=== PATIENT | female | born 1955 | race Caucasian/White ===

== ENCOUNTER 2021-11-13 08:03 | Emergency (ER) | payer MEDICARE, BC | END 2021-11-13 10:25 | disposition home or self-care (01) | LOC: LB.ED 08:03 | DX: J06.9 Acute upper respiratory infection, unspecified (principal); Z20.822 Contact with and (suspected) exposure to COVID-19; Z79.82 Long term (current) use of aspirin | CPT/HCPCS: 36415; 71045; 80048; 81001; 83605; 84484; 85025; 87804; 93005; 99284; U0002; 99282 ==

== ENCOUNTER 2021-11-14 06:55 | Observation (INO) | payer MEDICARE, BC ==
[2021-11-14] MEDS ORDERED: Acetaminophen 325 MG Tab PO PRN (09:13)
[2021-11-14] MEDS ORDERED: Sodium Chloride 0.9% 1,000 ML IV SCH (09:15)
[2021-11-14] MEDS ORDERED: Sodium Chloride 0.9% 500 ML IV SCH (09:15)
[2021-11-14] MEDS ORDERED: Pseudoephedrine 120 MG Tab.ER PO SCH (09:15)
[2021-11-14] MEDS ORDERED: Sodium Chloride 0.9% 10 ML Syringe FLUSH PRN (09:17)
[2021-11-14] MEDS ORDERED: Non-Formulary Medication 1 Each (Fluticasone Propionate [Flonase Allergy Relief] 9.9 ML Sp NASLF PRN (09:18)
[2021-11-14] MEDS ORDERED: Levothyroxine 25 MCG Tab PO ONE (09:20)
[2021-11-14] MEDS: guaiFENesin 600 MG Tab.ER PO SCH ×2 (09:47→19:22)
[2021-11-14] MEDS: Gabapentin 300 MG Cap PO SCH (09:47)
[2021-11-14] MEDS: cefTRIAXone 1 GM Vial IVPUSH SCH (09:48)
[2021-11-14] MEDS: Sodium Chloride 0.65% Nasal Spray 45 ML Bottle NAS SCH ×3 (09:55→21:15)
[2021-11-14] MEDS ORDERED: Fluticasone NASAL Spray 16 GM Bottle NASLF PRN (14:26)
[2021-11-14] MEDS: PSEUDOEPHEDRINE 120 MG PO SCH (19:24)
[2021-11-14] MEDS ORDERED: Gabapentin 600 MG Tab PO SCH (20:00)
[2021-11-15] MEDS: Sodium Chloride 0.65% Nasal Spray 45 ML Bottle NAS SCH ×2 (03:15→08:41)
[2021-11-15] MEDS ORDERED: Levothyroxine 100 MCG Tab PO SCH (07:00)
[2021-11-15] MEDS: guaiFENesin 600 MG Tab.ER PO SCH (07:49)
[2021-11-15] MEDS: Gabapentin 300 MG Cap PO SCH (07:49)
[2021-11-15] MEDS ORDERED: Pantoprazole 40 MG Tab.CR PO SCH (08:00)
[2021-11-15] MEDS: PSEUDOEPHEDRINE 120 MG PO SCH (08:39)
[2021-11-15] MEDS: cefTRIAXone 1 GM Vial IVPUSH SCH (08:40)
== END 2021-11-15 11:55 | disposition home or self-care (01) ==
LOC: LB.ED 06:55 → LB.MS 09:13
PROVIDERS: ADMIT Physician Assistant; ATTEND Physician Assistant
DX: M54.6 Pain in thoracic spine (principal); E03.9 Hypothyroidism, unspecified; R55 Syncope and collapse; J32.9 Chronic sinusitis, unspecified; Z79.899 Other long term (current) drug therapy; Z79.890 Hormone replacement therapy
CPT/HCPCS: 36415; 70450; 71260; 74177; 80048; 83605; 84443; 84484; 85025; 87070; 93005; 99285; A9270; J0696; J7030; J7040

== ENCOUNTER 2022-08-21 10:12 | Emergency (ER) | payer MEDICARE, BC ==
[2022-08-21] MEDS ORDERED: Sodium Chloride 0.9% 10 ML Syringe FLUSH PRN (10:39)
[2022-08-21 11:17] LABS: ESTIMATED GFR 84 mL/min (>60)
[2022-08-21] MEDS ORDERED: Morphine 4 MG/ML VIAL IVPUSH ONE (11:22)
[2022-08-21] MEDS ORDERED: Sodium Chloride 0.9% 50 ML SDV FLUSH ONE (11:59)
[2022-08-21] MEDS ORDERED: Iopamidol 612 MG/ML 100 ML Bottle IV SCH (12:00)
[2022-08-21] MEDS ORDERED: Morphine 4 MG/ML VIAL ONE (12:12)
[2022-08-21] MEDS ORDERED: Ketorolac 30 MG/ML SDV IVPUSH ONE (14:36)
[2022-08-21] MEDS ORDERED: Ketorolac 30 MG/ML SDV ONE (14:47)
== END 2022-08-21 15:15 | disposition home or self-care (01) ==
LOC: LB.ED 10:12
DX: R10.31 Right lower quadrant pain (principal); M19.90 Unspecified osteoarthritis, unspecified site; E03.9 Hypothyroidism, unspecified; Z88.5 Allergy status to narcotic agent; Z79.82 Long term (current) use of aspirin; Z79.899 Other long term (current) drug therapy; Z20.822 Contact with and (suspected) exposure to COVID-19
CPT/HCPCS: 36415; 74177; 80053; 81003; 85027; 86140; 87804; 87804-59; 96374; 96375; 99284-25; J1885; J2270; J3490; Q9967; U0002

== ENCOUNTER 2023-08-06 07:30 | Inpatient (IN) | payer MEDICARE, BC ==
[2023-08-06] MEDS ORDERED: Sodium Chloride 0.9% 10 ML Syringe FLUSH PRN (07:46)
[2023-08-06] MEDS ORDERED: Sodium Chloride 0.9% 1,000 ML IV SCH (08:00)
[2023-08-06 08:09] LABS: HEMATOCRIT 42.2 % (37.0-47.0); HEMOGLOBIN 14.1 g/dL (11.5-16.5); LYMPHOCYTES ABSOLUTE AUTO 1.43 K/uL (1.50-4.00); LYMPHOCYTES PERCENT AUTO 25.2 % (20.0-40.0); MEAN CORPUSCULAR HEMOGLOBIN 31.3 pg (27.0-32.0); MEAN CORPUSCULAR HGB CONC 33.4 g/dL (31.0-35.0); MEAN CORPUSCULAR VOLUME 94 fL (76-96); MEAN PLATELET VOLUME 9.6 fL (6.0-10.0); MONOCYTES ABSOLUTE AUTO 0.42 K/uL (0.20-0.80); MONOCYTES PERCENT AUTO 7.4 % (3.0-10.0); NEUTROPHILS ABSOLUTE AUTO 3.83 K/uL (2.00-7.50); NEUTROPHILS PERCENT AUTO 67.4 % (45.0-70.0); PLATELET COUNT,PLT 226 K/uL (150-500); RED CELL DISTRIBUTION WIDTH 13.5 % (11.0-16.0); WHITE BLOOD CELL COUNT,WBC 5.7 K/uL (4.0-11.0)
[2023-08-06] MEDS ORDERED: Morphine 4 MG/ML VIAL IVPUSH ONE ×2 (08:09→09:18)
[2023-08-06] MEDS ORDERED: Morphine 4 MG/ML VIAL ONE ×2 (08:18→09:20)
[2023-08-06 08:36] LABS: A/G RATIO 1.1 (0.8-2.0); ANION GAP 19.1 mmol/L (5.0-15.0); BUN/CREATININE RATIO 15.9 (6-25); CALCIUM 9.7 mg/dL (8.5-10.1); CARBON DIOXIDE,CO2 21.3 mmol/L (21.0-32.0); CREATININE 0.88 mg/dL (0.55-1.02); EST CRCL DRUG DOSING (CG) 63.05 mL/min; POTASSIUM,K 3.4 mmol/L (3.5-5.1); PROTEIN TOTAL,TP 7.8 g/dL (6.4-8.2)
[2023-08-06 09:14] LABS: BILIRUBIN TOTAL 0.8 mg/dL (0.0-1.0)
[2023-08-06] MEDS ORDERED: Pantoprazole 40 MG Vial IVPUSH ONE (09:15)
[2023-08-06] MEDS ORDERED: Sucralfate 1 GM Tab PO ONE (09:16)
[2023-08-06] MEDS ORDERED: Famotidine 20 MG/2 ML SDV IVPUSH ONE (09:16)
[2023-08-06] MEDS ORDERED: GI Cocktail Oral Solution 30 ML PO ONE (09:16)
[2023-08-06] MEDS ORDERED: Ondansetron 4 MG/2 ML SDV IVPUSH ONE ×2 (09:18→11:19)
[2023-08-06] MEDS ORDERED: Ondansetron 4 MG/2 ML SDV ONE (09:20)
[2023-08-06] MEDS ORDERED: Pantoprazole 40 MG Vial ONE (09:20)
[2023-08-06] MEDS ORDERED: NS + KCl 20mEq/L 1,000 ML IV SCH (10:00)
[2023-08-06] MEDS ORDERED: Ondansetron 4 MG/2 ML SDV IVPUSH PRN (11:36)
[2023-08-06] MEDS: D5 1/2 NS w/ 20 mEq/L KCl 1,000 ML IV SCH ×2 (11:57→17:07)
[2023-08-06] MEDS: Gabapentin 300 MG Cap PO SCH (12:19)
[2023-08-06] MEDS: Folic Acid 0.4 MG Tab PO SCH (12:19)
[2023-08-06 12:42] LABS: ANION GAP 16.8 mmol/L (5.0-15.0); BUN/CREATININE RATIO 15.4 (6-25); CALCIUM 8.7 mg/dL (8.5-10.1); CARBON DIOXIDE,CO2 20.1 mmol/L (21.0-32.0); CREATININE 0.78 mg/dL (0.55-1.02); EST CRCL DRUG DOSING (CG) 71.14 mL/min; POTASSIUM,K 3.9 mmol/L (3.5-5.1); TROPONIN I HIGH SENSITIVITY 10.6 pg/ml (<=60.4)
[2023-08-06] MEDS ORDERED: Sodium Chloride 0.9% 50 ML SDV FLUSH ONE (13:49)
[2023-08-06] MEDS ORDERED: Iopamidol 612 MG/ML 100 ML Bottle IV SCH (14:00)
[2023-08-06] MEDS ORDERED: Promethazine 12.5 MG Supp RECTAL ONE (14:16)
[2023-08-06 17:50] LABS: INFLUENZA A NAA NEGATIVE (NEGATIVE); INFLUENZA B NAA NEGATIVE (NEGATIVE); RESPIRATORY SYNCYTIAL VIR NAA NEGATIVE (NEGATIVE)
[2023-08-06 17:52] LABS: CORONAVIRUS COVID-19 NAA NEGATIVE (NEGATIVE)
[2023-08-06] MEDS: Pantoprazole 40 MG Vial IVPUSH SCH (19:51)
[2023-08-06] MEDS: Famotidine 20 MG/2 ML SDV IVPUSH SCH (19:51)
[2023-08-06] MEDS: Gabapentin 600 MG Tab PO SCH (19:51)
[2023-08-06] MEDS: Vancomycin 1 GM SDV PO SCH (21:25)
[2023-08-07] MEDS: D5 1/2 NS w/ 20 mEq/L KCl 1,000 ML IV SCH (00:58)
[2023-08-07] MEDS: Levothyroxine 100 MCG Tab PO SCH (09:23)
[2023-08-07] MEDS: Pantoprazole 40 MG Vial IVPUSH SCH ×2 (09:24→20:06)
[2023-08-07] MEDS: Gabapentin 300 MG Cap PO SCH (09:24)
[2023-08-07] MEDS: Folic Acid 0.4 MG Tab PO SCH (09:24)
[2023-08-07] MEDS: Famotidine 20 MG/2 ML SDV IVPUSH SCH ×2 (09:24→20:03)
[2023-08-07] MEDS: Vancomycin 1 GM SDV PO SCH ×5 (09:25→20:09)
[2023-08-07 12:13] LABS: ANION GAP 12.1 mmol/L (5.0-15.0); BUN/CREATININE RATIO 3.5 (6-25); CALCIUM 8.8 mg/dL (8.5-10.1); CARBON DIOXIDE,CO2 25.7 mmol/L (21.0-32.0); CREATININE 0.86 mg/dL (0.55-1.02); EST CRCL DRUG DOSING (CG) 63.57 mL/min; POTASSIUM,K 3.8 mmol/L (3.5-5.1)
[2023-08-07] MEDS: Gabapentin 600 MG Tab PO SCH (20:09)
[2023-08-08] MEDS: Levothyroxine 100 MCG Tab PO SCH (06:55)
[2023-08-08] MEDS: Gabapentin 300 MG Cap PO SCH (07:55)
[2023-08-08] MEDS: Folic Acid 0.4 MG Tab PO SCH (07:55)
[2023-08-08] MEDS: Pantoprazole 40 MG Vial IVPUSH SCH ×2 (07:56→19:50)
[2023-08-08] MEDS: Famotidine 20 MG/2 ML SDV IVPUSH SCH ×2 (07:56→19:53)
[2023-08-08] MEDS: Vancomycin 1 GM SDV PO SCH ×4 (07:56→19:55)
[2023-08-08 12:03] LABS: TSH W/RFLX FREE T4 0.47 mU/L (0.27-4.20)
[2023-08-08] MEDS ORDERED: Ketorolac 30 MG/ML SDV IVPUSH ONE (14:08)
[2023-08-08] MEDS ORDERED: Ketorolac 30 MG/ML SDV ONE (14:10)
[2023-08-08] MEDS ORDERED: Ketorolac 30 MG/ML SDV IVPUSH PRN (19:00)
[2023-08-08] MEDS: Gabapentin 600 MG Tab PO SCH (19:55)
[2023-08-09] MEDS: Levothyroxine 100 MCG Tab PO SCH (07:00)
[2023-08-09] MEDS: Pantoprazole 40 MG Vial IVPUSH SCH ×2 (07:43→20:03)
[2023-08-09] MEDS: Gabapentin 300 MG Cap PO SCH (07:43)
[2023-08-09] MEDS: Folic Acid 0.4 MG Tab PO SCH (07:43)
[2023-08-09] MEDS: Famotidine 20 MG/2 ML SDV IVPUSH SCH ×2 (07:43→20:04)
[2023-08-09] MEDS: Vancomycin 1 GM SDV PO SCH ×4 (07:43→20:06)
[2023-08-09 07:53] LABS: BASOPHILS ABSOLUTE AUTO 0.02 K/uL (0.02-0.10); BASOPHILS PERCENT AUTO 0.4 % (0.0-0.5); HEMATOCRIT 39.4 % (37.0-47.0); LYMPHOCYTES PERCENT AUTO 36.4 % (20.0-40.0); MEAN CORPUSCULAR HEMOGLOBIN 31.2 pg (27.0-32.0); MEAN CORPUSCULAR VOLUME 95 fL (76-96); MONOCYTES ABSOLUTE AUTO 0.46 K/uL (0.20-0.80); MONOCYTES PERCENT AUTO 9.3 % (3.0-10.0); NEUTROPHILS ABSOLUTE AUTO 2.67 K/uL (2.00-7.50); NEUTROPHILS PERCENT AUTO 53.9 % (45.0-70.0); PLATELET COUNT,PLT 209 K/uL (150-500); RED BLOOD CELL COUNT 4.17 M/uL (3.80-5.80); RED CELL DISTRIBUTION WIDTH 13.5 % (11.0-16.0)
[2023-08-09 08:10] LABS: A/G RATIO 0.9 (0.8-2.0); ALBUMIN 3.3 g/dL (3.4-5.0); BILIRUBIN TOTAL 0.5 mg/dL (0.0-1.0); BUN/CREATININE RATIO 8.1 (6-25); CALCIUM 9.1 mg/dL (8.5-10.1); CREATININE 0.86 mg/dL (0.55-1.02); EST CRCL DRUG DOSING (CG) 63.22 mL/min; PROTEIN TOTAL,TP 6.8 g/dL (6.4-8.2)
[2023-08-09] MEDS: Gabapentin 600 MG Tab PO SCH (20:04)
[2023-08-10 01:47] LABS: ADENOVIRUS 40/41 PCR Not Detected; ASTROVIRUS PCR Not Detected; CAMPYLOBACTER PCR Not Detected; CRYPTOSPORIDIUM PCR Not Detected; CYCLOSPORA CAYETANENSIS PCR Not Detected; ENTAMOEBA HISTOLYTICA PCR Not Detected; ENTEROAGGREGATIVE E. COLI PCR Not Detected; ENTEROPATHOGENIC E. COLI PCR Not Detected; ENTEROTOXIGENIC E. COLI PCR Not Detected; GIARDIA LAMBLIA PCR Not Detected; NOROVIRUS GI/GII PCR Not Detected; PLESIOMONAS SHIGELLOIDES PCR Not Detected; ROTAVIRUS A PCR Not Detected; SALMONELLA PCR Not Detected; SAPOVIRUS PCR Not Detected; SHIG/ENTEROINVASIVE E COLI PCR Not Detected; SHIGA TOXIN-PRODUC E. COLI PCR Not Detected; VIBRIO CHOLERAE PCR Not Detected; VIBRIO PCR Not Detected; YERSINIA ENTEROCOLITICA PCR Not Detected
[2023-08-10 08:07] LABS: BASOPHILS ABSOLUTE AUTO 0.01 K/uL (0.02-0.10); BASOPHILS PERCENT AUTO 0.2 % (0.0-0.5); HEMATOCRIT 38.5 % (37.0-47.0); HEMOGLOBIN 12.7 g/dL (11.5-16.5); LYMPHOCYTES ABSOLUTE AUTO 1.57 K/uL (1.50-4.00); LYMPHOCYTES PERCENT AUTO 34.2 % (20.0-40.0); MEAN CORPUSCULAR HEMOGLOBIN 31.3 pg (27.0-32.0); MEAN CORPUSCULAR VOLUME 95 fL (76-96); MONOCYTES ABSOLUTE AUTO 0.46 K/uL (0.20-0.80); NEUTROPHILS ABSOLUTE AUTO 2.55 K/uL (2.00-7.50); NEUTROPHILS PERCENT AUTO 55.6 % (45.0-70.0); PLATELET COUNT,PLT 201 K/uL (150-500); RED BLOOD CELL COUNT 4.06 M/uL (3.80-5.80); RED CELL DISTRIBUTION WIDTH 13.2 % (11.0-16.0); WHITE BLOOD CELL COUNT,WBC 4.6 K/uL (4.0-11.0)
[2023-08-10 08:18] LABS: ALBUMIN 3.2 g/dL (3.4-5.0); ANION GAP 11.5 mmol/L (5.0-15.0); BILIRUBIN TOTAL 0.5 mg/dL (0.0-1.0); BUN/CREATININE RATIO 10.1 (6-25); CALCIUM 9.2 mg/dL (8.5-10.1); CARBON DIOXIDE,CO2 27.8 mmol/L (21.0-32.0); CREATININE 0.89 mg/dL (0.55-1.02); EST CRCL DRUG DOSING (CG) 61.09 mL/min; POTASSIUM,K 4.3 mmol/L (3.5-5.1); PROTEIN TOTAL,TP 6.5 g/dL (6.4-8.2)
[2023-08-10] MEDS: Folic Acid 0.4 MG Tab PO SCH (08:27)
[2023-08-10] MEDS: Levothyroxine 100 MCG Tab PO SCH (08:27)
[2023-08-10] MEDS: Vancomycin 1 GM SDV PO SCH ×4 (08:27→19:46)
[2023-08-10] MEDS: Gabapentin 300 MG Cap PO SCH (08:27)
[2023-08-10] MEDS: Famotidine 20 MG/2 ML SDV IVPUSH SCH (08:31)
[2023-08-10] MEDS: Pantoprazole 40 MG Vial IVPUSH SCH (08:31)
[2023-08-10] MEDS: Gabapentin 600 MG Tab PO SCH (19:46)
[2023-08-11] MEDS ORDERED: Pantoprazole 40 MG Delayed-Release Granules 1 Packet PO SCH (07:00)
[2023-08-11] MEDS ORDERED: Pantoprazole 40 MG Tab.CR PO SCH (07:00)
[2023-08-11] MEDS: Levothyroxine 100 MCG Tab PO SCH (07:40)
[2023-08-11] MEDS: Gabapentin 300 MG Cap PO SCH (07:40)
[2023-08-11] MEDS: Folic Acid 0.4 MG Tab PO SCH (07:40)
[2023-08-11] MEDS ORDERED: Famotidine 20 MG Tab PO SCH (08:00)
[2023-08-11] MEDS: Vancomycin 1 GM SDV PO SCH (10:01)
== END 2023-08-11 09:42 | disposition home or self-care (01) | DRG 373 ==
LOC: LB.ED 07:30 → LB.MS 09:53
PROVIDERS: ADMIT Emergency Medicine; ATTEND Emergency Medicine
DX: R10.9 Unspecified abdominal pain (principal); R19.7 Diarrhea, unspecified; A04.71 Enterocolitis due to Clostridium difficile, recurrent; J45.909 Unspecified asthma, uncomplicated; M19.90 Unspecified osteoarthritis, unspecified site; K21.9 Gastro-esophageal reflux disease without esophagitis; E03.9 Hypothyroidism, unspecified; Z90.49 Acquired absence of other specified parts of digestive tract; Z20.822 Contact with and (suspected) exposure to COVID-19; Z98.890 Other specified postprocedural states; Z98.51 Tubal ligation status; Z86.19 Personal history of other infectious and parasitic diseases; Z88.8 Allergy status to other drugs, medicaments and biological substances; Z79.82 Long term (current) use of aspirin; Z79.899 Other long term (current) drug therapy; Z88.5 Allergy status to narcotic agent; Z79.890 Hormone replacement therapy; Z11.52 Encounter for screening for COVID-19
CPT/HCPCS: 0241U; 36415; 74177; 80048; 80053; 83605; 83735; 84100; 84443; 84484; 85025; 87324; 87493; 87507; 93005; 96361; 96374; 96375; 96376; 99285-25; A9270-GY; C9113; J1885; J2270; J2405; J3370; J3480; J3490; J7030; Q9967

== ENCOUNTER 2024-06-14 11:54 | Emergency (ER) | payer MEDICARE, BC ==
[2024-06-14 13:01] LABS: BASOPHILS ABSOLUTE AUTO 0.02 K/uL (0.02-0.10); BASOPHILS PERCENT AUTO 0.4 % (0.0-0.5); HEMATOCRIT 37.1 % (37.0-47.0); HEMOGLOBIN 12.1 g/dL (11.5-16.5); LYMPHOCYTES ABSOLUTE AUTO 1.65 K/uL (1.50-4.00); LYMPHOCYTES PERCENT AUTO 34.8 % (20.0-40.0); MEAN CORPUSCULAR HEMOGLOBIN 31.8 pg (27.0-32.0); MEAN CORPUSCULAR HGB CONC 32.6 g/dL (31.0-35.0); MEAN CORPUSCULAR VOLUME 97 fL (76-96); MEAN PLATELET VOLUME 10.3 fL (6.0-10.0); MONOCYTES ABSOLUTE AUTO 0.39 K/uL (0.20-0.80); MONOCYTES PERCENT AUTO 8.2 % (3.0-10.0); NEUTROPHILS ABSOLUTE AUTO 2.68 K/uL (2.00-7.50); NEUTROPHILS PERCENT AUTO 56.6 % (45.0-70.0); PLATELET COUNT,PLT 201 K/uL (150-500); RED BLOOD CELL COUNT 3.81 M/uL (3.80-5.80); RED CELL DISTRIBUTION WIDTH 13.5 % (11.0-16.0); WHITE BLOOD CELL COUNT,WBC 4.7 K/uL (4.0-11.0)
[2024-06-14 13:03] LABS: APPEARANCE,URINE CLEAR (CLEAR); BILIRUBIN,URINE NEGATIVE (NEGATIVE); COLOR,URINE YELLOW; GLUCOSE,URINE NEGATIVE (NEGATIVE); KETONES,URINE NEGATIVE (NEGATIVE); LEUKOCYTE ESTERASE,URINE NEGATIVE (NEGATIVE); NITRITE,URINE NEGATIVE (NEGATIVE); OCCULT BLOOD,URINE NEGATIVE (NEGATIVE); PH,URINE 5.5 (5.0-8.0); PROTEIN,URINE NEGATIVE (NEGATIVE); UROBILINOGEN,URINE 0.2 E.U./dL (0.2-1.0)
[2024-06-14 13:04] LABS: RBC,URINE 0-5 /HPF; WBC,URINE 0-5 /HPF
[2024-06-14 13:20] LABS: INR 0.9 (1.0-3.5); PTT,PARTIAL THROMBOPLSTIN TIME 24.9 SECONDS (24.4-33.2)
[2024-06-14 13:23] LABS: PROTHROMBIN TIME 9.8 sec (9.0-11.5)
== END 2024-06-14 14:09 | disposition home or self-care (01) ==
LOC: LB.ED 11:54
DX: K13.79 Other lesions of oral mucosa (principal); J45.909 Unspecified asthma, uncomplicated; K21.9 Gastro-esophageal reflux disease without esophagitis; E03.9 Hypothyroidism, unspecified; Z90.49 Acquired absence of other specified parts of digestive tract; Z79.82 Long term (current) use of aspirin; Z79.899 Other long term (current) drug therapy; Z88.5 Allergy status to narcotic agent
CPT/HCPCS: 70450; 70486; 70490; 81001; 81241; 85025; 85240; 85610; 85730; 99284

== ENCOUNTER 2024-07-05 08:30 | Observation (INO) | payer MEDICARE, BC ==
[2024-07-05] MEDS ORDERED: Sodium Chloride 0.9% 10 ML Syringe FLUSH PRN (08:50)
[2024-07-05 09:26] LABS: BASOPHILS ABSOLUTE AUTO 0.02 K/uL (0.02-0.10); BASOPHILS PERCENT AUTO 0.2 % (0.0-0.5); HEMATOCRIT 46.5 % (37.0-47.0); HEMOGLOBIN 15.6 g/dL (11.5-16.5); LYMPHOCYTES ABSOLUTE AUTO 1.75 K/uL (1.50-4.00); LYMPHOCYTES PERCENT AUTO 18.7 % (20.0-40.0); MEAN CORPUSCULAR HEMOGLOBIN 31.6 pg (27.0-32.0); MEAN CORPUSCULAR HGB CONC 33.5 g/dL (31.0-35.0); MEAN CORPUSCULAR VOLUME 94 fL (76-96); MEAN PLATELET VOLUME 9.9 fL (6.0-10.0); MONOCYTES ABSOLUTE AUTO 0.56 K/uL (0.20-0.80); NEUTROPHILS ABSOLUTE AUTO 7.03 K/uL (2.00-7.50); NEUTROPHILS PERCENT AUTO 75.1 % (45.0-70.0); PLATELET COUNT,PLT 240 K/uL (150-500); RED BLOOD CELL COUNT 4.93 M/uL (3.80-5.80); RED CELL DISTRIBUTION WIDTH 13.7 % (11.0-16.0); WHITE BLOOD CELL COUNT,WBC 9.4 K/uL (4.0-11.0)
[2024-07-05 09:45] LABS: MAGNESIUM 2.1 mg/dL (1.8-2.4); PHOSPHORUS 2.5 mg/dL (2.5-4.9)
[2024-07-05 09:54] LABS: ALANINE AMINOTRANSFERASE,ALT 21 U/L (12-78); ALBUMIN 4.7 g/dL (3.4-5.0); ALKALINE PHOSPHATASE 88 U/L (46-116); ANION GAP 16.3 mmol/L (5.0-15.0); ASPARTATE AMNIOTRANSFERASE,AST 16 U/L (15-37); BILIRUBIN TOTAL 0.7 mg/dL (0.0-1.0); BLOOD UREA NITROGEN,BUN 12 mg/dL (8-26); BUN/CREATININE RATIO 13.2 (6-25); CARBON DIOXIDE,CO2 24.5 mmol/L (21.0-32.0); CHLORIDE,CL 104 mmol/L (98-107); CREATININE 0.91 mg/dL (0.55-1.02); EST CRCL DRUG DOSING (CG) 61.79 mL/min; ESTIMATED GFR 68 mL/min (>60); GLUCOSE RANDOM 119 mg/dL (74-100); POTASSIUM,K 3.8 mmol/L (3.5-5.1); PRO B-TYPE NATRIUR PEPT,BNPPRO 244 pg/mL (0-125); PROTEIN TOTAL,TP 9.2 g/dL (6.4-8.2); SODIUM,NA 141 mmol/L (136-145)
[2024-07-05 09:59] LABS: TSH ULTRASENSITIVE 3.292 uIU/mL (0.358-3.740)
[2024-07-05 10:21] LABS: TROPONIN I HIGH SENSITIVITY < 4.0 pg/ml (<=60.4)
[2024-07-05] MEDS: Sodium Chloride 0.9% 1,000 ML IV SCH (10:52)
[2024-07-05 10:57] LABS: C-REACTIVE PROTEIN < 5.0 mg/L (<5.0)
[2024-07-05] MEDS: Metoprolol Succinate 25 MG Tab.ER PO SCH (15:05)
[2024-07-05] MEDS ORDERED: Cetirizine 10 MG Tab PO PRN (15:26)
[2024-07-05] MEDS: Pantoprazole 40 MG Tab.CR PO SCH (16:18)
[2024-07-05] MEDS: Gabapentin 300 MG Cap PO SCH (19:35)
[2024-07-05] MEDS: Acetaminophen 325 MG Tab PO PRN (19:58)
[2024-07-06] MEDS: Ondansetron 4 MG Tab.DIS PO PRN (06:20)
[2024-07-06] MEDS: Levothyroxine 112 MCG Tab PO SCH (08:38)
[2024-07-06] MEDS: Metoprolol Tartrate 25 MG Tab PO SCH (08:41)
[2024-07-06 08:55] LABS: ANION GAP 17.9 mmol/L (5.0-15.0); BLOOD UREA NITROGEN,BUN 14 mg/dL (8-26); BUN/CREATININE RATIO 17.1 (6-25); CHLORIDE,CL 106 mmol/L (98-107); CREATININE 0.82 mg/dL (0.55-1.02); EST CRCL DRUG DOSING (CG) 66.69 mL/min; ESTIMATED GFR 77 mL/min (>60); GLUCOSE RANDOM 92 mg/dL (74-100); POTASSIUM,K 3.9 mmol/L (3.5-5.1); SODIUM,NA 142 mmol/L (136-145)
[2024-07-06 09:14] LABS: TROPONIN I HIGH SENSITIVITY < 4.0 pg/ml (<=60.4)
[2024-07-06] MEDS: Metoprolol Succinate 25 MG Tab.ER PO SCH (19:15)
[2024-07-07] MEDS: Metoprolol Succinate 25 MG Tab.ER PO ONE (08:38)
[2024-07-07] MEDS: Metoprolol Succinate 25 MG Tab.ER ONE (08:46)
[2024-07-07] MEDS: diazePAM 5 MG/ML MDV ONE (16:06)
[2024-07-07] MEDS: Morphine 4 MG/ML VIAL IVPUSH ONE (16:06)
[2024-07-07] MEDS: Metoprolol Succinate 25 MG Tab.ER PO SCH (19:12)
[2024-07-08] MEDS: Metoprolol Succinate 50 MG Tab.ER PO ONE (10:21)
[2024-07-08 15:05] LABS: B. BURGDORFERI IGG IMMUNOBLOT Negative (Negative); B. BURGDORFERI IGM IMMUNOBLOT Negative (Negative)
[2024-07-08] MEDS ORDERED: Metoprolol Succinate 100 MG Tab.ER PO SCH (20:00)
[2024-07-09 08:14] LABS: BORRELIA SPECIES SOURCE Plasma; BORRELIA SPP DNA DETECTION PCR Not Detected
== END 2024-07-08 11:08 | disposition home or self-care (01) ==
LOC: LB.ED 08:30 → LB.MS 14:06
PROVIDERS: ADMIT Surgery; ATTEND Surgery
DX: I49.8 Other specified cardiac arrhythmias (principal); E03.9 Hypothyroidism, unspecified; K21.9 Gastro-esophageal reflux disease without esophagitis; Z79.890 Hormone replacement therapy; Z79.899 Other long term (current) drug therapy; Z88.5 Allergy status to narcotic agent
CPT/HCPCS: 36415; 71045; 71250; 80048; 80053; 83735; 83880; 84100; 84443; 84484; 85025; 85379; 86140; 86617; 87476; 93005; 93010; 93246; 96374; 99222; 99232; 99239; 99285; A9270-GY; G0378; J3360; J7030; Q0162

== ENCOUNTER 2024-07-29 05:25 | Observation (INO) | payer MEDICARE, BC ==
[2024-07-29] MEDS: Ondansetron 4 MG Tab.DIS PO ONE (06:07)
[2024-07-29] MEDS ORDERED: Ketorolac 30 MG/ML SDV IVPUSH ONE (06:23)
[2024-07-29] MEDS: Ondansetron 4 MG/2 ML SDV ONE ×2 (06:29→11:51)
[2024-07-29] MEDS: Ondansetron 4 MG/2 ML SDV IVPUSH ONE ×2 (06:30→10:20)
[2024-07-29] MEDS: Ketorolac 30 MG/ML SDV IVPUSH ONE (06:35)
[2024-07-29] MEDS: Ketorolac 30 MG/ML SDV ONE (06:36)
[2024-07-29] MEDS: HYDROmorphone 2 MG/ML Syringe ONE (06:37)
[2024-07-29] MEDS: HYDROmorphone 2 MG/ML Syringe IVPUSH ONE ×2 (06:40→07:27)
[2024-07-29] MEDS: HYDROmorphone 1 MG/ML Syringe IVPUSH ONE (06:45)
[2024-07-29] MEDS ORDERED: traMADol 50 MG Tab ONE (10:00)
[2024-07-29] MEDS ORDERED: Cyclobenzaprine 10 MG Tab ONE (10:00)
[2024-07-29] MEDS ORDERED: Metoclopramide 10 MG Tab ONE (10:00)
[2024-07-29] MEDS ORDERED: Ketorolac 10 MG Tab ONE (10:00)
[2024-07-29] MEDS ORDERED: Non-Formulary Medication 1 Each (Cetirizine [Zyrtec] 10 MG Tablet) PO PRN (10:30)
[2024-07-29] MEDS: Cetirizine 10 MG Tab PO SCH (12:01)
[2024-07-29] MEDS: Non-Formulary Medication 1 Each (Metoprolol Succinate [Metoprolol Succinate] 50 MG Tab.Er. PO SCH (12:02)
[2024-07-29] MEDS: Metoclopramide 10 MG/2 ML SDV IV PRN (13:06)
[2024-07-29] MEDS: Dextrose 5%-0.9% NaCl 1,000 ML IV SCH (13:20)
[2024-07-29 13:36] LABS: ANION GAP 16.8 mmol/L (5.0-15.0); BUN/CREATININE RATIO 21.9 (6-25); CALCIUM 9.6 mg/dL (8.5-10.1); CARBON DIOXIDE,CO2 23.3 mmol/L (21.0-32.0); CREATININE 0.96 mg/dL (0.55-1.02); EST CRCL DRUG DOSING (CG) 56.81 mL/min; POTASSIUM,K 4.1 mmol/L (3.5-5.1)
[2024-07-29] MEDS: Ondansetron 4 MG/2 ML SDV IVPUSH SCH (14:09)
[2024-07-29] MEDS: HYDROmorphone 2 MG/ML Syringe IVPUSH PRN (15:51)
[2024-07-29] MEDS ORDERED: Non-Formulary Medication 1 Each (Gabapentin [Neurontin] 300 MG Cap) PO SCH (20:00)
[2024-07-29] MEDS: Gabapentin 600 MG Tab PO SCH (20:16)
[2024-07-29] MEDS: Metoprolol Succinate 50 MG Tab.ER ONE (20:29)
[2024-07-30] MEDS: Levothyroxine 112 MCG Tab PO SCH (06:13)
[2024-07-30] MEDS ORDERED: Non-Formulary Medication 1 Each (Levothyroxine [Levothyroxine] 112 MCG Tablet) PO SCH (07:00)
[2024-07-30 09:09] LABS: ANION GAP 7.2 mmol/L (5.0-15.0); BUN/CREATININE RATIO 15.4 (6-25); CALCIUM 8.3 mg/dL (8.5-10.1); CARBON DIOXIDE,CO2 25.5 mmol/L (21.0-32.0); CREATININE 0.78 mg/dL (0.55-1.02); EST CRCL DRUG DOSING (CG) 69.92 mL/min; POTASSIUM,K 3.7 mmol/L (3.5-5.1)
[2024-07-30] MEDS: Pantoprazole 40 MG Tab.CR PO SCH (10:44)
[2024-07-30] MEDS: traMADol 50 MG Tab PO PRN (13:15)
[2024-07-30] MEDS ORDERED: Ketorolac 30 MG/ML SDV IVPUSH PRN (16:11)
[2024-07-30] MEDS: Ketorolac 30 MG/ML SDV IVPUSH PRN (16:49)
[2024-07-30] MEDS: Metoprolol Succinate 50 MG Tab.ER ONE (19:29)
[2024-07-31] MEDS: Enoxaparin 40 MG/0.4 ML Syringe SUBCUT SCH (09:25)
[2024-07-31] MEDS: Cyclobenzaprine 10 MG Tab PO ONE (09:37)
[2024-07-31] MEDS: Metoclopramide 10 MG Tab ONE (11:51)
[2024-07-31] MEDS: Ketorolac 10 MG Tab ONE (11:51)
[2024-07-31] MEDS: traMADol 50 MG Tab ONE (11:51)
[2024-07-31] MEDS: Cyclobenzaprine 10 MG Tab ONE (11:51)
== END 2024-07-31 12:03 | disposition home or self-care (01) ==
LOC: LB.ED 05:25 → LB.MS 10:25
PROVIDERS: ADMIT Family Medicine; ATTEND Family Medicine
DX: M51.369 Other intervertebral disc degeneration, lumbar region without mention of lumbar back pain or lower extremity pain (principal); J45.909 Unspecified asthma, uncomplicated; K21.9 Gastro-esophageal reflux disease without esophagitis; E03.9 Hypothyroidism, unspecified; Z79.890 Hormone replacement therapy; Z79.899 Other long term (current) drug therapy; Z88.5 Allergy status to narcotic agent
CPT/HCPCS: 36415; 72131; 80048; 84484; 93005; 96361; 96374; 96375; 96376; 99284; A9270; G0378; J1171; J1885; J2405; J2765; Q0162; U0002; 93010; 99222; 99231; 99238; 99285

== ENCOUNTER 2024-08-28 13:09 | Emergency (ER) | payer MEDICARE, BC | END 2024-08-28 14:11 | disposition home or self-care (01) | LOC: LB.ED 13:09 | DX: M79.672 Pain in left foot (principal); E03.9 Hypothyroidism, unspecified; Z90.49 Acquired absence of other specified parts of digestive tract; Z79.899 Other long term (current) drug therapy; Z79.890 Hormone replacement therapy; Z88.5 Allergy status to narcotic agent; Z88.8 Allergy status to other drugs, medicaments and biological substances; Z91.012 Allergy to eggs | CPT/HCPCS: 73630-LT; 99283 ==

== ENCOUNTER 2024-09-13 06:23 | Emergency (ER) | payer MEDICARE, BC ==
[2024-09-13] MEDS: Ketorolac 15 MG/ML SDV IM ONE (07:13)
[2024-09-13 07:48] LABS: INFLUENZA A NAA NEGATIVE (NEGATIVE); INFLUENZA B NAA NEGATIVE (NEGATIVE); RESPIRATORY SYNCYTIAL VIR NAA POSITIVE (NEGATIVE)
[2024-09-13 07:49] LABS: APPEARANCE,URINE SLIGHTLY CLOUDY (CLEAR); BILIRUBIN,URINE NEGATIVE (NEGATIVE); COLOR,URINE YELLOW; GLUCOSE,URINE NEGATIVE (NEGATIVE); KETONES,URINE 15 mg/dL (NEGATIVE); LEUKOCYTE ESTERASE,URINE NEGATIVE (NEGATIVE); NITRITE,URINE NEGATIVE (NEGATIVE); OCCULT BLOOD,URINE NEGATIVE (NEGATIVE); PH,URINE 5.5 (5.0-8.0); PROTEIN,URINE NEGATIVE (NEGATIVE); UROBILINOGEN,URINE 0.2 E.U./dL (0.2-1.0)
[2024-09-13 07:50] LABS: CORONAVIRUS COVID-19 NAA NEGATIVE (NEGATIVE)
[2024-09-13] MEDS: Albuterol/Ipratropium 3.0-0.5 MG/3 ML Neb Soln NEB ONE (08:00)
[2024-09-13] MEDS: Ondansetron 4 MG/2 ML SDV IVPUSH ONE (08:29)
[2024-09-13] MEDS: Lactated Ringers 1,000 ML IV ONE (08:31)
[2024-09-13] MEDS: Morphine 4 MG/ML VIAL IVPUSH ONE (08:36)
[2024-09-13] MEDS ORDERED: Azithromycin 250 MG Tab ONE (09:30)
[2024-09-13 09:49] VITALS: BP 127/59; PULSE 69
== END 2024-09-13 09:37 | disposition home or self-care (01) ==
LOC: LB.ED 06:23
DX: J06.9 Acute upper respiratory infection, unspecified (principal); B97.89 Other viral agents as the cause of diseases classified elsewhere; E03.9 Hypothyroidism, unspecified; Z90.49 Acquired absence of other specified parts of digestive tract; Z79.890 Hormone replacement therapy; Z79.899 Other long term (current) drug therapy; Z91.012 Allergy to eggs; Z88.8 Allergy status to other drugs, medicaments and biological substances; Z88.6 Allergy status to analgesic agent
CPT/HCPCS: 0241U; 71045; 81003; 94640; 96372; 96374; 96375; 99283; 99284-25; A9270-GY; J1885; J2270; J2405; J7120; J7620

== ENCOUNTER 2025-01-28 11:57 | Emergency (ER) | payer MEDICARE, BC ==
[2025-01-28 12:24] LABS: BASOPHILS ABSOLUTE AUTO 0.01 K/uL (0.02-0.10); BASOPHILS PERCENT AUTO 0.2 % (0.0-0.5); HEMATOCRIT 38.6 % (37.0-47.0); LYMPHOCYTES ABSOLUTE AUTO 1.69 K/uL (1.50-4.00); LYMPHOCYTES PERCENT AUTO 25.7 % (20.0-40.0); MEAN CORPUSCULAR HEMOGLOBIN 32.1 pg (27.0-32.0); MEAN CORPUSCULAR HGB CONC 33.7 g/dL (31.0-35.0); MEAN CORPUSCULAR VOLUME 95 fL (76-96); MEAN PLATELET VOLUME 10.5 fL (6.0-10.0); MONOCYTES PERCENT AUTO 7.6 % (3.0-10.0); NEUTROPHILS ABSOLUTE AUTO 4.38 K/uL (2.00-7.50); NEUTROPHILS PERCENT AUTO 66.5 % (45.0-70.0); PLATELET COUNT,PLT 214 K/uL (150-500); RED BLOOD CELL COUNT 4.05 M/uL (3.80-5.80); RED CELL DISTRIBUTION WIDTH 13.4 % (11.0-16.0); WHITE BLOOD CELL COUNT,WBC 6.6 K/uL (4.0-11.0)
[2025-01-28 12:45] LABS: A/G RATIO 0.9 (0.8-2.0); ALBUMIN 3.4 g/dL (3.4-5.0); ANION GAP 13.6 mmol/L (5.0-15.0); BILIRUBIN TOTAL 0.3 mg/dL (0.0-1.0); CARBON DIOXIDE,CO2 24.3 mmol/L (21.0-32.0); CREATININE 0.84 mg/dL (0.55-1.02); EST CRCL DRUG DOSING (CG) 65.13 mL/min; POTASSIUM,K 3.9 mmol/L (3.5-5.1); TROPONIN I HIGH SENSITIVITY 4.4 pg/ml (<=60.4)
[2025-01-28 13:28] LABS: APPEARANCE,URINE CLEAR (CLEAR); COLOR,URINE YELLOW; GLUCOSE,URINE NEGATIVE (NEGATIVE); PROTEIN,URINE NEGATIVE (NEGATIVE)
[2025-01-28 13:29] LABS: BILIRUBIN,URINE NEGATIVE (NEGATIVE); KETONES,URINE NEGATIVE (NEGATIVE); LEUKOCYTE ESTERASE,URINE TRACE (NEGATIVE); NITRITE,URINE NEGATIVE (NEGATIVE); OCCULT BLOOD,URINE TRACE-INTACT (NEGATIVE); RBC,URINE 0-5 /HPF; UROBILINOGEN,URINE 0.2 E.U./dL (0.2-1.0); WBC,URINE 0-5 /HPF
[2025-01-28 13:58] LABS: INFLUENZA A NAA NEGATIVE (NEGATIVE); INFLUENZA B NAA NEGATIVE (NEGATIVE); RESPIRATORY SYNCYTIAL VIR NAA NEGATIVE (NEGATIVE)
[2025-01-28 14:02] LABS: CORONAVIRUS COVID-19 NAA NEGATIVE (NEGATIVE)
== END 2025-01-28 14:40 | disposition home or self-care (01) ==
LOC: LB.ED 11:57
DX: R07.89 Other chest pain (principal); R61 Generalized hyperhidrosis; K21.9 Gastro-esophageal reflux disease without esophagitis; E03.9 Hypothyroidism, unspecified; Z79.890 Hormone replacement therapy; Z79.899 Other long term (current) drug therapy; Z88.5 Allergy status to narcotic agent; Z88.8 Allergy status to other drugs, medicaments and biological substances; Z90.49 Acquired absence of other specified parts of digestive tract; Z91.012 Allergy to eggs
CPT/HCPCS: 0241U; 36415; 71045; 80053; 81001; 84484; 85025; 87086; 93005; 99285

== ENCOUNTER 2025-04-19 19:59 | Emergency (ER) | payer MEDICARE, BC ==
[2025-04-19] MEDS: Ondansetron 4 MG/2 ML SDV IVPUSH ONE ×2 (20:20→22:52)
[2025-04-19] MEDS: fentaNYL 100 MCG/2 ML SDV IVPUSH ONE ×2 (20:32→21:50)
[2025-04-19] MEDS ORDERED: Sodium Chloride 0.9% 10 ML Syringe FLUSH PRN (21:15)
[2025-04-19] MEDS: Midazolam 1 MG/ML 2 ML SDV IVPUSH ONE (21:57)
== END 2025-04-19 22:25 ==
LOC: LB.ED 19:59
DX: S82.451A Displaced comminuted fracture of shaft of right fibula, initial encounter for closed fracture (principal); S82.231A Displaced oblique fracture of shaft of right tibia, initial encounter for closed fracture; I10 Essential (primary) hypertension; J45.909 Unspecified asthma, uncomplicated; K21.9 Gastro-esophageal reflux disease without esophagitis; E03.9 Hypothyroidism, unspecified; Z90.49 Acquired absence of other specified parts of digestive tract; Z88.5 Allergy status to narcotic agent; Z88.8 Allergy status to other drugs, medicaments and biological substances; Z91.012 Allergy to eggs; Z79.890 Hormone replacement therapy; Z79.899 Other long term (current) drug therapy; W19.XXXA Unspecified fall, initial encounter
CPT/HCPCS: 29505; 51702; 73560; 73590; 96374; 96375; 96376; 99285; A0425; A0429; J1171; J2250; J2405; J3010

== ENCOUNTER 2025-04-26 09:49 | Inpatient (IN) | payer MEDICARE, BC ==
[2025-04-26] MEDS: Tuberculin, PPD 5 Units/0.1 ML 1 ML MDV IDERM ONE (19:34)
[2025-04-27] MEDS: Aspirin 325 MG Tab.EC PO SCH (07:42)
[2025-04-27] MEDS: Metoprolol Succinate 100 MG Tab.ER PO SCH (07:42)
[2025-04-27] MEDS ORDERED: Non-Formulary Medication 1 Each (Aspirin [Aspirin] 325 MG Tablet) PO SCH (08:00)
[2025-04-27] MEDS: Ketorolac 30 MG/ML SDV IM PRN (19:28)
[2025-04-28] MEDS: Ketorolac 30 MG/ML SDV IM PRN (23:49)
[2025-04-30 15:06] LABS: APPEARANCE,URINE CLOUDY (CLEAR); GLUCOSE,URINE NEGATIVE (NEGATIVE); OCCULT BLOOD,URINE MODERATE (NEGATIVE)
[2025-04-30 15:14] LABS: SQUAMOUS EPITHELIAL CELLS,UR FEW /HPF
[2025-05-01] MEDS: Ondansetron 4 MG Tab.DIS PO PRN (20:52)
[2025-05-02 13:39] LABS: MEAN PLATELET VOLUME 9.4 fL (6.0-10.0); PLATELET COUNT,PLT 323.0 K/uL (150-500); RED BLOOD CELL COUNT 3.75 M/uL (3.80-5.80); RED CELL DISTRIBUTION WIDTH 13.5 % (11.0-16.0); WHITE BLOOD CELL COUNT,WBC 5.3 K/uL (4.0-11.0)
[2025-05-02 13:54] LABS: BLOOD UREA NITROGEN,BUN 23.0 mg/dL (8-26); CARBON DIOXIDE,CO2 27.3 mmol/L (21.0-32.0); CHLORIDE,CL 103.0 mmol/L (98-107); CREATININE 1.01 mg/dL (0.55-1.02); EST CRCL DRUG DOSING (CG) 53.39 mL/min; ESTIMATED GFR 60.0 mL/min (>60); GLUCOSE RANDOM 139.0 mg/dL (74-100); POTASSIUM,K 4.5 mmol/L (3.5-5.1); SODIUM,NA 138.0 mmol/L (136-145)
[2025-05-03] MEDS: Sennosides/Docusate Sodium 50-8.6 MG Tab PO PRN (07:25)
[2025-05-10] MEDS: Tuberculin, PPD 5 Units/0.1 ML 1 ML MDV IDERM ONE (19:33)
== END 2025-05-12 10:38 | disposition home or self-care (01) | DRG 560 ==
LOC: LB.MS 13:20
PROVIDERS: ADMIT Surgery; ATTEND Surgery
DX: S82.201D Unspecified fracture of shaft of right tibia, subsequent encounter for closed fracture with routine healing (principal); N30.01 Acute cystitis with hematuria; J45.909 Unspecified asthma, uncomplicated; I10 Essential (primary) hypertension; R53.81 Other malaise; K21.9 Gastro-esophageal reflux disease without esophagitis; E03.9 Hypothyroidism, unspecified; Z90.49 Acquired absence of other specified parts of digestive tract; Z98.51 Tubal ligation status; Z79.890 Hormone replacement therapy; Z79.899 Other long term (current) drug therapy
CPT/HCPCS: 36415; 80048; 81001; 85027; 86580; 87086; 97110-GP; 97116-GP; 97162-GP; 97165-GO; 97530-GO; 97530-GP; 97535-GO; 99305; 99308; 99316; A9270-GY; J1650; J1885; Q0162